=== PATIENT | female | born 1940 | race Caucasian/White ===

== ENCOUNTER 2021-02-11 23:03 | Emergency (ER) | payer OTHER ==
[~2021-02-11] VITALS: Ht 152.4 cm; Wt 42.6 kg
[~2021-02-11 23:03] MED LIST: NORCO 5-325 TA1 EACH PO
[2021-02-12 04:18] LABS: HEMOGLOBIN 11.3 gm/dl (12.3-15.3); RED BLOOD COUNT 3.64 M/UL (4.00-5.10); WHITE BLOOD COUNT 5.4 K/UL (4.5-11.0)
[2021-02-12] MEDS ORDERED: PAROXETINE HCL30 MG PO (11:15)
[2021-02-12] MEDS ORDERED: AMLODIPINE BES2.5 MG PO (11:15)
[2021-02-12] MEDS ORDERED: GABAPENTIN300 MG PO (11:15)
[2021-02-12] MEDS ORDERED: DONEPEZIL HCL5 MG PO (11:16)
[2021-02-12] MEDS ORDERED: CINACALCET HCL90 MG PO (11:16)
[2021-02-12] MEDS ORDERED: CARBIDOPA-LEVO1 EA14 PO (11:17)
== END 2021-02-12 11:00 | disposition home or self-care (01) ==
LOC: ER1 23:03
PROVIDERS: Emergency Medicine
DX: K22.5 Diverticulum of esophagus, acquired (principal); N18.9 Chronic kidney disease, unspecified
CPT/HCPCS: 71250; 74220; 80053; 85025; 96374; 96375; 99284; J2270; J2405; Q9963

== ENCOUNTER 2021-05-20 22:40 | Emergency (ER) | payer OTHER ==
[~2021-05-20 22:40] MED LIST changes: +AMLODIPINE BES2.5 MG PO; +CARBIDOPA-LEVO1 EA14 PO; +CINACALCET HCL90 MG PO; +DONEPEZIL HCL5 MG PO; +GABAPENTIN300 MG PO; +PAROXETINE HCL30 MG PO
[2021-05-20 23:41] LABS: HEMOGLOBIN 8.2 gm/dl (12.3-15.3); RED BLOOD COUNT 2.61 M/UL (4.00-5.10); WHITE BLOOD COUNT 7.9 K/UL (4.5-11.0)
[2021-05-21] MEDS ORDERED: HYDROCODON-ACE1 EAC4 PO (02:01)
[2021-05-22] MEDS ORDERED: NORVASC2.5 MG PO (14:08)
[2021-05-22] MEDS ORDERED: HYDROCODONE-AC1 EACH PO (14:08)
[2021-05-22] MEDS ORDERED: CINACALCET HCL90 MG PO (14:09)
[2021-05-22] MEDS ORDERED: PAROXETINE HCL30 MG PO (14:09)
[2021-05-22] MEDS ORDERED: DONEPEZIL HCL5 MG PO (14:10)
[2021-05-22] MEDS ORDERED: GABAPENTIN300 MG PO (14:10)
[2021-05-22] MEDS ORDERED: CARBIDOPA-LEVO1 EA14 PO (14:11)
[2021-05-22] MEDS ORDERED: ACETAMINOPHEN-1 EAC1 PO (14:12)
[2021-05-22] MEDS ORDERED: VITAMIN D3 (14:14)
[2021-05-22] MEDS ORDERED: PEPCID40 MG PO (14:15)
== END 2021-05-21 02:10 | disposition home or self-care (01) ==
LOC: ER1 22:40
PROVIDERS: Physician Assistant Medical
DX: S82.042A Displaced comminuted fracture of left patella, initial encounter for closed fracture (principal); S82.032A Displaced transverse fracture of left patella, initial encounter for closed fracture; I12.9 Hypertensive chronic kidney disease with stage 1 through stage 4 chronic kidney disease, or unspecified chronic kidney disease; N18.9 Chronic kidney disease, unspecified; D64.9 Anemia, unspecified; W19.XXXA Unspecified fall, initial encounter; Y92.009 Unspecified place in unspecified non-institutional (private) residence as the place of occurrence of the external cause
CPT/HCPCS: 29530; 72100; 73552; 73564; 73590; 80053; 85025; 99283

== ENCOUNTER 2021-05-24 11:01 | Inpatient (IN) | payer OTHER ==
[~2021-05-24] VITALS: Ht 157.5 cm; Wt 44.5 kg
[~2021-05-24 11:01] MED LIST changes: +ACETAMINOPHEN-1 EAC1 PO; +HYDROCODON-ACE1 EAC4 PO; +PEPCID40 MG PO
[2021-05-24 11:58] LABS: HEMOGLOBIN 8.8 gm/dl (12.3-15.3); RED BLOOD COUNT 2.8 M/UL (4.00-5.10); WHITE BLOOD COUNT 4.6 K/UL (4.5-11.0)
[2021-05-24] MEDS ORDERED: ASPIRIN EC81 MG PO (12:03)
[2021-05-24] MEDS ORDERED: VITAMIN E400 UNI4 PO (12:04)
[2021-05-24] MEDS ORDERED: ZINC50 M2 PO (12:04)
[2021-05-24] MEDS ORDERED: B-1100 MG PO (12:05)
[2021-05-24] MEDS ORDERED: HEMP OIL PO (12:08)
[2021-05-24] MEDS ORDERED: B-12500 MCG PO (12:10)
[2021-05-24 16:44] LABS: HEMOGLOBIN 8.3 gm/dl (12.3-15.3); RED BLOOD COUNT 2.63 M/UL (4.00-5.10); WHITE BLOOD COUNT 5.8 K/UL (4.5-11.0)
[2021-05-25 04:51] LABS: RED BLOOD COUNT 2.01 M/UL (4.00-5.10); WHITE BLOOD COUNT 6.5 K/UL (4.5-11.0)
[2021-05-25 04:53] LABS: HEMOGLOBIN 6.3 gm/dl (12.3-15.3)
--- NOTE | 2021-05-25 06:00 | NUR ---
Patient noted to have not voided since at least 05/24/2021 @ approximately 17:00. Bladder scanner showed 312ml in bladder, patient's bladder is distended. Obtained order from MD Ross to straight cath patient. Patient is straight cathed at this time. 300ml urine drained. Patient tolerated well, no complications.
[2021-05-25] MEDS ORDERED: ASPIRIN81 MG PO (09:05)
[2021-05-25] MEDS ORDERED: LASIX20 MG PO (09:06)
--- NOTE | 2021-05-25 11:47 | NUR ---
FIRST UNIT OF [facility] STARTED AT 1130, NO ISSUES NOTED IN FIRST 15 MINUTES. WCTM CLOSELY.
[2021-05-25] MEDS ORDERED: NORVASC2.5 MG PO (14:08)
[2021-05-25] MEDS ORDERED: HYDROCODONE-AC1 EACH PO (14:08)
[2021-05-25] MEDS ORDERED: DONEPEZIL HCL5 MG PO (14:10)
[2021-05-25] MEDS ORDERED: GABAPENTIN300 MG PO (14:10)
[2021-05-25] MEDS ORDERED: VITAMIN D-40010 MCG PO (14:14)
[2021-05-25 20:08] LABS: HEMOGLOBIN 8.9 gm/dl (12.3-15.3)
--- NOTE | 2021-05-26 03:55 | NUR ---
05/26/2021 @ APPROX 03:00 - Patient is bladder scanned at this time. Bladder scanner shows 565ml. Patient is straight cathed, 400ml drained from bladder. Patient tolerated well, no complications.
[2021-05-26 04:07] LABS: HEMOGLOBIN 8.5 gm/dl (12.3-15.3)
[2021-05-26 04:19] LABS: RED BLOOD COUNT 2.73 M/UL (4.00-5.10)
--- NOTE | 2021-05-26 09:55 | NUR ---
8:45am straight cath pt due to bladder scanner showing pt had greater than 290 in. got 250ml out of pt.
[2021-05-26 15:09] LABS: HEMOGLOBIN 8.1 gm/dl (12.3-15.3)
[2021-05-27 03:21] LABS: HEMOGLOBIN 8.6 gm/dl (12.3-15.3); RED BLOOD COUNT 2.74 M/UL (4.00-5.10); WHITE BLOOD COUNT 9.1 K/UL (4.5-11.0)
--- NOTE | 2021-05-27 11:24 | NUR ---
PT WAS ON BSC AND KATHERINE AND I PUT HER BACK TO THE CHAIR AND I NOTICED PT WAS SWEATING AND LOOKED LIKE SHE WAS HAVING SOME SOA, CALLED TELE, KAMERON STATED THAT THE PT HAD FLIPPED INTO AFIB WITH RVR WITH A RATE BETWEEN 120-153. CALLED , SHE ORDERED STAT LABS, EKG AND CHEST XRAY. DR. HURTADO AND MYSELF STAYED WITH PT UNTIL EKG SHOWED TACHY WITH A CONTROLLED RATE, WITH SOME ST DEPRESSION. DR. HURTADO CONSULTED CARDIO. [facility]
[2021-05-27 11:54] LABS: HEMOGLOBIN 8.6 gm/dl (12.3-15.3)
[2021-05-28 07:16] LABS: HEMOGLOBIN 10.3 gm/dl (12.3-15.3); WHITE BLOOD COUNT 7.9 K/UL (4.5-11.0)
[2021-05-28 07:28] LABS: RED BLOOD COUNT 3.33 M/UL (4.00-5.10)
--- NOTE | 2021-05-28 09:42 | NUR ---
PATIENT O2 SAT 78. O2 INCREASED TO 8L NC. O2 SAT 84. RT NOTIFIED. PATIENT PLACED ON HF 10L. O2 SAT REMAINS IN THE LOW 80'S. NOTIFIED AND ORDER RECEIVED FOR RT TO PLACE PATIENT ON BIPAP. BIPAP SETTINGS 01/27. TM.
[2021-05-29 04:28] LABS: RED BLOOD COUNT 3.25 M/UL (4.00-5.10); WHITE BLOOD COUNT 7.6 K/UL (4.5-11.0)
[2021-05-30 01:18] LABS: HEMOGLOBIN 10.2 gm/dl (12.3-15.3); RED BLOOD COUNT 3.28 M/UL (4.00-5.10); WHITE BLOOD COUNT 7.9 K/UL (4.5-11.0)
[2021-05-31 04:13] LABS: HEMOGLOBIN 9.7 gm/dl (12.3-15.3); RED BLOOD COUNT 3.17 M/UL (4.00-5.10); WHITE BLOOD COUNT 8.1 K/UL (4.5-11.0)
--- NOTE | 2021-05-31 04:52 | NUR ---
INFORMED FIGHT MANAGER OF SITUATION WITH PATIENT'S SWELLING OF LEG.
--- NOTE | 2021-05-31 05:26 | NUR ---
INFORMED NURSE IN ICU OF RADIOLOGY RESULTS FROM CT OF LOWER EXTREMETITY. RESULTS CALLED THAT SHOWED EXTENSIVE HEMATOMA EXTENDING THROUGHOUT THE THIGH HAVING A EFFECT ON THE ADJACENT SOFT TISSUE. HEMATOMA WAS MEASURED TO BE 15 CM.
[2021-05-31 05:44] LABS: HEMOGLOBIN 8.5 gm/dl (12.3-15.3)
[2021-05-31 11:10] LABS: HEMOGLOBIN 10.2 gm/dl (12.3-15.3)
== END 2021-05-31 16:05 | disposition short-term general hospital (02) | DRG 515 ==
LOC: OR 11:01 → M/S 17:11 → OR 17:12 → M/S 17:19 → PROG CARE 05-28 10:16 → CCU 05-31 05:58
PROVIDERS: Internal Medicine; Orthopaedic Surgery; ADMIT Internal Medicine
PROC: 3E043XZ Introduction of Vasopressor into Central Vein, Percutaneous Approach (ICD-10-PCS; 2021-05-24)
PROC: 0QSF04Z Reposition Left Patella with Internal Fixation Device, Open Approach (ICD-10-PCS; principal; 2021-05-24 07:30)
PROC: 30233N1 Transfusion of Nonautologous Red Blood Cells into Peripheral Vein, Percutaneous Approach (ICD-10-PCS; 2021-05-27)
PROC: 5A09457 Assistance with Respiratory Ventilation, 24-96 Consecutive Hours, Continuous Positive Airway Pressure (ICD-10-PCS; 2021-05-28)
PROC: B24BZZZ Ultrasonography of Heart with Aorta (ICD-10-PCS; 2021-05-28)
DX: S82.042A Displaced comminuted fracture of left patella, initial encounter for closed fracture (principal); R57.1 Hypovolemic shock; J96.01 Acute respiratory failure with hypoxia; I26.99 Other pulmonary embolism without acute cor pulmonale; I82.432 Acute embolism and thrombosis of left popliteal vein; D62 Acute posthemorrhagic anemia; N17.9 Acute kidney failure, unspecified; E44.0 Moderate protein-calorie malnutrition; Z68.1 Body mass index [BMI] 19.9 or less, adult; Z20.822 Contact with and (suspected) exposure to COVID-19; W01.0XXA Fall on same level from slipping, tripping and stumbling without subsequent striking against object, initial encounter; N18.30 Chronic kidney disease, stage 3 unspecified; F41.9 Anxiety disorder, unspecified; F03.90 Unspecified dementia, unspecified severity, without behavioral disturbance, psychotic disturbance, mood disturbance, and anxiety; M10.9 Gout, unspecified; G20 Parkinson's disease; R53.81 Other malaise; E05.90 Thyrotoxicosis, unspecified without thyrotoxic crisis or storm; I12.9 Hypertensive chronic kidney disease with stage 1 through stage 4 chronic kidney disease, or unspecified chronic kidney disease; K21.9 Gastro-esophageal reflux disease without esophagitis; G89.29 Other chronic pain; R33.8 Other retention of urine; F32.A Depression, unspecified; I48.0 Paroxysmal atrial fibrillation; M79.81 Nontraumatic hematoma of soft tissue; T45.515A Adverse effect of anticoagulants, initial encounter; I49.5 Sick sinus syndrome; Z99.3 Dependence on wheelchair; Z88.5 Allergy status to narcotic agent; Z88.8 Allergy status to other drugs, medicaments and biological substances; Z90.710 Acquired absence of both cervix and uterus; Z79.82 Long term (current) use of aspirin; Z79.899 Other long term (current) drug therapy; Z91.81 History of falling; Z79.01 Long term (current) use of anticoagulants
CPT/HCPCS: ECHO; 36415; 36430; 36600; 71045; 71275; 73564; 73700; 76000; 80048; 80053; 82550; 82553; 82803; 83735; 83880; 84100; 84439; 84443; 84484; 85014; 85018; 85025; 85027; 85379; 85610; 85730; 86850; 86900; 86901; 86920; 92526; 92610; 93005; 93306; 93970; 94640; 94660; 94760; 97110-GP-CQ; 97162; 97166; 97530-GP-CQ; C1713; G0378; J0592; J0690; J1100; J1644; J1650; J2270; J2370; J2704; J2795; J3370; J3475; J7030; J7120; P9016; Q9967